=== PATIENT | female | born 1965 | race Caucasian/White ===

== ENCOUNTER 2017-10-28 18:24 | Inpatient (IN) | payer OTHER ==
[~2017-10-28] VITALS: Ht 160 cm; Wt 51.7 kg
[~2017-10-28 18:24] MED LIST: AUGM PO; OXYC-360 PO
[2017-10-28 18:51] VITALS: BP 177/89; PULSE 83; RESP 14; TEMP 98.2; O2SAT 100
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
[2017-10-28] MEDS ORDERED: Post-op Orders (for Pharmacy) XX ONE (20:00)
[2017-10-28] MEDS ORDERED: NALOXONE HCL 0.4 MG/ML AMP IV PUSH PRN (20:00)
[2017-10-28] MEDS ORDERED: oxyCODONE/ACETAMINOPHEN 5 MG/325 MG TAB PO PRN (20:00)
[2017-10-28] MEDS ORDERED: SODIUM CHLORIDE 0.9% FLUSH 10 ML FLUSH IV FLUSH PRN (20:00)
[2017-10-28 20:15] VITALS: BP 185/96; PULSE 83; RESP 18; O2SAT 99
[2017-10-28] MEDS: SODIUM CHLOR 0.9% 1000 ML INJ 1,000 ML IV SCH (20:49)
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
[2017-10-28] MEDS: FAMOTIDINE 20 MG TAB PO SCH (21:00)
[2017-10-28] MEDS: SODIUM CHLORIDE 0.9% FLUSH 10 ML FLUSH IV FLUSH SCH (21:00)
[2017-10-28 21:07] VITALS: BP 152/75
[2017-10-28 22:00] VITALS: BP 131/65; PULSE 70; RESP 18; TEMP 98.4; O2SAT 98
[2017-10-29] VITALS (9 sets, daily range): BP systolic 127–156; BP diastolic 60–75; PULSE 63–91; RESP 14–26; TEMP 97.6–98.3; O2SAT 94–100
[2017-10-29 00:22] LABS: HEMATOCRIT 29.4 % (35.0-46.0)
[2017-10-29] MEDS: MORPHINE SULFATE 4 MG/ML INJ IV PUSH PRN ×2 (04:18→10:42)
[2017-10-29 05:00] LABS: AUTOMATED NEUTROPHIL # 8.7 TH/MM3 (1.8-7.7); BASOPHIL % 0.3 % (0.0-2.0); EOSINOPHIL # 0.1 TH/MM3 (0-0.4); EOSINOPHIL % 1.1 % (0.0-4.0); HEMATOCRIT 28.6 % (35.0-46.0); HEMOGLOBIN 9.7 GM/DL (11.6-15.3); LYMPH % 21.3 % (9.0-44.0); LYMPHOCYTE # 2.6 TH/MM3 (1.0-4.8); MEAN CELL VOLUME 93.5 FL (80.0-100.0); MEAN CORPUSCULAR HEMOGLOBIN 31.8 PG (27.0-34.0); MEAN PLATELET VOLUME 8.9 FL (7.0-11.0); MONO % 6.8 % (0.0-8.0); MONOCYTE # 0.8 TH/MM3 (0-0.9); NEUT % 70.5 % (16.0-70.0); PLATELET COUNT 179 TH/MM3 (150-450); RED BLOOD COUNT 3.06 MIL/MM3 (4.00-5.30); WHITE BLOOD COUNT 12.3 TH/MM3 (4.0-11.0)
[2017-10-29 05:08] LABS: INTERNATIONAL NORMALIZED RATIO 1.1 RATIO
[2017-10-29 05:32] LABS: ALBUMIN 3.2 GM/DL (3.4-5.0); BICARBONATE 21.5 MEQ/L (21.0-32.0); CALCIUM 8.6 MG/DL (8.5-10.1); CREATININE 0.69 MG/DL (0.50-1.00); DIRECT BILIRUBIN ADULT 0.2 MG/DL (0.0-0.2)
[2017-10-29 05:37] LABS: INDIRECT BILIRUBIN 0.6 MG/DL (0.0-0.8); TOTAL BILIRUBIN ADULT 0.8 MG/DL (0.2-1.0); TOTAL PROTEIN 7.2 GM/DL (6.4-8.2)
[2017-10-29] MEDS: SODIUM CHLOR 0.9% 1000 ML INJ 1,000 ML IV SCH ×2 (06:42→15:59)
[2017-10-29] MEDS ORDERED: LACTULOSE SYRUP 20 GM/30 ML CUP PO PRN (07:45)
[2017-10-29] MEDS: SODIUM CHLORIDE 0.9% FLUSH 10 ML FLUSH IV FLUSH SCH ×2 (09:00→19:49)
[2017-10-29] MEDS: DOCUSATE SODIUM 50 MG/SENNA 8.6 MG TAB PO SCH ×2 (09:00→19:49)
[2017-10-29] MEDS: MAGNESIUM HYDROXIDE SUSP 30 ML CUP PO SCH ×2 (09:00→19:49)
[2017-10-29 09:43] LABS: HEMATOCRIT 29.2 % (35.0-46.0); HEMOGLOBIN 9.8 GM/DL (11.6-15.3)
[2017-10-29] MEDS: NICOTINE 14 MG/24 HR PATCH T-DERMAL SCH (10:06)
[2017-10-29] MEDS: FAMOTIDINE 20 MG TAB PO SCH ×2 (10:07→21:43)
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
[2017-10-29 21:27] LABS: HEMATOCRIT 24.9 % (35.0-46.0); HEMOGLOBIN 8.6 GM/DL (11.6-15.3)
[2017-10-29] MEDS: REMOVE OLD PATCH T-DERMAL SCH (21:44)
[2017-10-30] VITALS: BP 127/62; PULSE 73; PULSE 74; RESP 19; O2SAT 95
[2017-10-30 04:00] VITALS: BP 150/69; PULSE 58; RESP 15; O2SAT 96
[2017-10-30 04:14] LABS: AUTOMATED NEUTROPHIL # 7.7 TH/MM3 (1.8-7.7); BASOPHIL # 0.1 TH/MM3 (0-0.2); BASOPHIL % 0.5 % (0.0-2.0); EOSINOPHIL # 0.1 TH/MM3 (0-0.4); EOSINOPHIL % 0.5 % (0.0-4.0); HEMOGLOBIN 8.9 GM/DL (11.6-15.3); LYMPH % 19.9 % (9.0-44.0); LYMPHOCYTE # 2.1 TH/MM3 (1.0-4.8); MEAN CELL VOLUME 94.3 FL (80.0-100.0); MEAN CORPUSCULAR HEMOGLOBIN 32.4 PG (27.0-34.0); MEAN CORPUSCULAR HGB CONC 34.4 % (32.0-36.0); MEAN PLATELET VOLUME 8.8 FL (7.0-11.0); MONO % 5.8 % (0.0-8.0); MONOCYTE # 0.6 TH/MM3 (0-0.9); NEUT % 73.3 % (16.0-70.0); PLATELET COUNT 158 TH/MM3 (150-450); RED BLOOD COUNT 2.76 MIL/MM3 (4.00-5.30); RED CELL DISTRIBUTION WIDTH 12.7 % (11.6-17.2); WHITE BLOOD COUNT 10.5 TH/MM3 (4.0-11.0)
[2017-10-30 04:18] LABS: ALT (GPT) 38 U/L (10-53); AST (GOT) 33 U/L (15-37); BICARBONATE 21.6 MEQ/L (21.0-32.0); BLOOD UREA NITROGEN 5 MG/DL (7-18); CALCIUM 8.4 MG/DL (8.5-10.1); CHLORIDE 109 MEQ/L (98-107); GLOMERULAR FILTRATION RATE 104 ML/MIN (>89); GLUCOSE,RANDOM 84 MG/DL (74-106); SODIUM (NA) 140 MEQ/L (136-145)
[2017-10-30 04:20] LABS: ALKALINE PHOSPHATASE 68 U/L (45-117); TOTAL BILIRUBIN ADULT 0.8 MG/DL (0.2-1.0); TOTAL PROTEIN 7.1 GM/DL (6.4-8.2)
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
[2017-10-30 08:00] VITALS: BP 165/71; PULSE 72; RESP 16; TEMP 98.4; O2SAT 98
[2017-10-30] MEDS: SODIUM CHLORIDE 0.9% FLUSH 10 ML FLUSH IV FLUSH SCH ×2 (09:00→22:04)
[2017-10-30] MEDS: FAMOTIDINE 20 MG TAB PO SCH ×2 (09:34→22:03)
[2017-10-30] MEDS: DOCUSATE SODIUM 50 MG/SENNA 8.6 MG TAB PO SCH ×2 (09:34→21:00)
[2017-10-30] MEDS: MAGNESIUM HYDROXIDE SUSP 30 ML CUP PO SCH ×2 (09:34→21:00)
[2017-10-30] MEDS: NICOTINE 14 MG/24 HR PATCH T-DERMAL SCH (09:35)
[2017-10-30] MEDS: MORPHINE SULFATE 4 MG/ML INJ IV PUSH PRN (10:14)
[2017-10-30 10:39] LABS: HEMATOCRIT 30.1 % (35.0-46.0); HEMOGLOBIN 10.4 GM/DL (11.6-15.3)
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
[2017-10-30 12:00] VITALS: BP 187/93; PULSE 75; RESP 18; TEMP 98.1; O2SAT 97
[2017-10-30] MEDS ORDERED: ENALAPRILAT 1.25 MG/ML VIAL IV PUSH PRN (13:00)
[2017-10-30] MEDS ORDERED: METOCLOPRAMIDE HCL 10 MG TAB PO PRN (13:00)
[2017-10-30] MEDS: ONDANSETRON ODT 4 MG TAB SL PRN (13:05)
[2017-10-30 16:00] VITALS: BP 166/74; PULSE 67; RESP 18; TEMP 98.1; O2SAT 98
[2017-10-30 19:35] LABS: HEMOGLOBIN 10.6 GM/DL (11.6-15.3)
[2017-10-30 20:00] VITALS: BP 148/68; PULSE 73; RESP 18; TEMP 98.1; O2SAT 98
[2017-10-30] MEDS: REMOVE OLD PATCH T-DERMAL SCH (22:04)
[2017-10-31] VITALS: BP 167/80; PULSE 63; RESP 20; TEMP 97.7; O2SAT 97
[2017-10-31 03:48] LABS: AUTOMATED NEUTROPHIL # 9.1 TH/MM3 (1.8-7.7); BASOPHIL # 0.1 TH/MM3 (0-0.2); BASOPHIL % 0.4 % (0.0-2.0); EOSINOPHIL # 0.1 TH/MM3 (0-0.4); HEMATOCRIT 30.7 % (35.0-46.0); HEMOGLOBIN 10.5 GM/DL (11.6-15.3); LYMPH % 15.9 % (9.0-44.0); LYMPHOCYTE # 1.9 TH/MM3 (1.0-4.8); MEAN CELL VOLUME 92.8 FL (80.0-100.0); MEAN CORPUSCULAR HEMOGLOBIN 31.8 PG (27.0-34.0); MEAN CORPUSCULAR HGB CONC 34.2 % (32.0-36.0); MEAN PLATELET VOLUME 8.6 FL (7.0-11.0); MONO % 5.9 % (0.0-8.0); MONOCYTE # 0.7 TH/MM3 (0-0.9); NEUT % 76.8 % (16.0-70.0); PLATELET COUNT 202 TH/MM3 (150-450); RED BLOOD COUNT 3.31 MIL/MM3 (4.00-5.30); RED CELL DISTRIBUTION WIDTH 12.8 % (11.6-17.2); WHITE BLOOD COUNT 11.8 TH/MM3 (4.0-11.0)
[2017-10-31] MEDS: oxyCODONE/ACETAMINOPHEN 7.5 MG/325 MG TAB PO PRN ×2 (03:51→09:41)
[2017-10-31] MEDS: ONDANSETRON ODT 4 MG TAB SL PRN (03:51)
[2017-10-31 04:00] VITALS: BP 157/72; PULSE 62; RESP 20; TEMP 97.7; O2SAT 99
[2017-10-31 08:00] VITALS: BP 165/77; PULSE 69; RESP 16; TEMP 98; O2SAT 98
[2017-10-31] MEDS ORDERED: PERI PO (08:29)
[2017-10-31] MEDS ORDERED: MAGN30S PO (08:29)
[2017-10-31] MEDS ORDERED: METO10TA PO (08:29)
[2017-10-31] MEDS: MAGNESIUM HYDROXIDE SUSP 30 ML CUP PO SCH (09:00)
[2017-10-31] MEDS: SODIUM CHLORIDE 0.9% FLUSH 10 ML FLUSH IV FLUSH SCH (09:42)
[2017-10-31] MEDS: DOCUSATE SODIUM 50 MG/SENNA 8.6 MG TAB PO SCH (09:42)
[2017-10-31] MEDS: FAMOTIDINE 20 MG TAB PO SCH (09:42)
[2017-10-31] MEDS: NICOTINE 14 MG/24 HR PATCH T-DERMAL SCH (09:43)
[2017-10-31] MEDS: REMOVE OLD PATCH T-DERMAL SCH (09:51)
[2017-10-31] MEDS ORDERED: OXYC1TAB63 PO (10:42)
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
== END 2017-10-31 14:01 | disposition home or self-care (01) | DRG 814 ==
LOC: NEPE 18:24 → NEDA 18:49 → N03A 21:53 → N06B 10-30 12:33
PROVIDERS: ADMIT Surgery; ATTEND Surgery
DX: S36.032A Major laceration of spleen, initial encounter (principal); K66.1 Hemoperitoneum; K64.9 Unspecified hemorrhoids; J44.9 Chronic obstructive pulmonary disease, unspecified; E86.0 Dehydration; V89.2XXA Person injured in unspecified motor-vehicle accident, traffic, initial encounter; Y92.410 Unspecified street and highway as the place of occurrence of the external cause
CPT/HCPCS: 71045; 80048; 80053; 80076; 85014; 85018; 85025; 85610; 86850; 86900; 86901; 87641; 94150; 99285; J2270; J7030